=== PATIENT | female | born 1985 ===

== ENCOUNTER 2016-07-03 22:15 | Emergency (ER) | payer OTHER ==
[2016-07-03 22:56] VITALS: O2SAT 100
--- NOTE | 2016-07-04 01:18 | C.PDOC ---
History Of Present Illness 30 y/o female presents to the ED with complains of vaginal bleeding for the past 3 days. Pt is , . Pt denies abdominal pain, vomiting, fever or any other complaints. Chief Complaint (Nursing): Female Genitourinary History Per: Patient History/Exam Limitations: no limitations Onset/Duration Of Symptoms: Days Current Symptoms Are (Timing): Still Present Severity: Mild Quality Of Discomfort: denies: "Pain" Associated Symptoms: denies: Fever, Vomiting Alleviating Factors: None Recent travel outside of the [place]: No Abnormal Vaginal Bleeding: Yes : 2 Para: 1 Past Medical History Reviewed: Historical Data, Nursing Documentation, Vital Signs Vital Signs: Last Vital Signs Temp 98.4 F 07/03/16 22:54 Pulse 92 H 07/03/16 22:54 Resp 20 07/03/16 22:54 BP 118/74 07/03/16 22:54 Pulse Ox 100 07/04/16 03:32 Family History: States: Unknown Family Hx - Social History Hx Alcohol Use: No Hx Substance Use: No - Immunization History Hx Tetanus Toxoid Vaccination: No Hx Influenza Vaccination: No Hx Pneumococcal Vaccination: No Review Of Systems Except As Marked, All Systems Reviewed And Found Negative. Constitutional: Negative for: Fever Gastrointestinal: Negative for: Vomiting, Abdominal Pain Genitourinary: Positive for: Vaginal Bleeding Physical Exam - Physical Exam Appears: Non-toxic, No Acute Distress Skin: Warm, Dry, No Rash Head: Atraumatic, Normacephalic Chest: Symmetrical Cardiovascular: Rhythm Regular Respiratory: Normal Breath Sounds, No Rales, No Rhonchi, No Wheezing Gastrointestinal/Abdominal: Soft, Tenderness (mild hypogastric tenderness), No Guarding, No Rebound Pelvic: Vaginal Bleeding (minimal), No Cervical Motion Tenderness, No Cervix Open Extremity: Bilateral: Atraumatic Neurological/Psych: Oriented x3 ED Course And Treatment - Laboratory Results Result Diagrams: 07/04/16 01:45 07/04/16 01:45 O2 Sat by Pulse Oximetry: 100 (on room air) Pulse Ox Interpretation: Normal - CT Scan/US US preg Other Rad Studies (CT/US): Read By Radiologist, Radiology Report Reviewed CT/US Interpretation: EXAM: US First Trimester, Transabdominal. CLINICAL HISTORY: 30 years old, female; Signs and symptoms; Other: Vag bleeding ; ; Additional info: Vaginal. bleed/ . TECHNIQUE: Real-time transabdominal obstetrical ultrasound of the maternal pelvis and a first trimester. with image documentation. COMPARISON: No relevant prior studies available. FINDINGS: Gestation: No intrauterine gestational sac. Uterus/cervix: Endometrium: 1.6 cm in thickness, heterogeneous with increased vascularity. Closed. cervix. Ovaries: RIGHT ovary: Probable corpus luteal cyst. LEFT ovary: Normal. No adnexal masses. Free fluid: No significant free fluid. IMPRESSION: 1. No intrauterine gestation. DDX: Early IUP, missed , ectopic . 2. Thickened, heterogeneous endometrium. RPOC not excluded. 3. Incidental/non-acute findings are described above. EXAM: US , Transvaginal. CLINICAL HISTORY: 30 years old, female; Signs and symptoms; Other: Vag bleeding; ; Additional info: Vaginal. bleed/ . TECHNIQUE: Real-time transvaginal obstetrical ultrasound of the maternal pelvis and a first trimester . with image documentation. Transvaginal imaging was used for better evaluation of the fetus and. adnexa. COMPARISON: No relevant prior studies available. FINDINGS: Gestation: No intrauterine gestational sac. Uterus/cervix: Endometrium: 1.6 cm in thickness, heterogeneous with increased vascularity. Closed. cervix. Ovaries: RIGHT ovary : Probable corpus luteal cyst. LEFT ovary: Normal. No adnexal masses. Free fluid: No significant free fluid. IMPRESSION: 1. No intrauterine gestation. DDX: Early IUP, missed , ectopic . 2. Thickened, heterogeneous endometrium. RPOC not excluded. 3. Incidental/non-acute findings are described above. Thank you for allowing us to participate in the care of your patient. Dictated and Authenticated by: Keith Lawton MD. 07/04/2016 3: 30 AM Eastern Time ([place] & [place]) Medical Decision Making Medical Decision Making: Plan: labs, US transvaginal Disposition Counseled Patient/Family Regarding: Diagnosis - Disposition Referrals: [facility] [Outside] Disposition: HOME/ ROUTINE Disposition Time: 03:37 Condition: STABLE Instructions: Threatened Miscarriage (ED) - POA Present On Arrival: None - Clinical Impression Clinical Impression: Threatened - Scribe Statement The provider has reviewed the documentation as recorded by the Susanne Burden Provider Attestation: All medical record entries made by the Scribe were at my direction and personally dictated by me. I have reviewed the chart and agree that the record accurately reflects my personal performance of the history, physical exam, medical decision making, and the department course for this patient. I have also personally directed, reviewed, and agree with the discharge instructions and disposition.
[2016-07-04 01:50] LABS: BASO % 0.6 % (0.0-2.0); EOS # 0.2 K/uL (0.0-0.7); EOS % 2.6 % (0.0-4.0); HEMATOCRIT 38.1 % (34.0-47.0); LYMPH # 3.2 K/uL (1.0-4.3); LYMPH % 47.9 % (20.0-40.0); MEAN CORPUSCULAR HEMOGLOBIN 29.3 pg (27.0-31.0); MEAN CORPUSCULAR HGB CONC 32.9 g/dL (33.0-37.0); MEAN PLATELET VOLUME 7.9 fL (7.2-11.7); MONO # 0.5 K/uL (0.0-0.8); MONO % 7.8 % (0.0-10.0); NRBC % 0.2 % (0.0-2.0); RED CELL DISTRIBUTION WIDTH 12.7 % (11.5-14.5); WHITE BLOOD COUNT 6.8 K/uL (4.8-10.8)
[2016-07-04 02:10] LABS: CHLORIDE 99 mmol/L (98-107); POTASSIUM 3.2 mmol/L (3.6-5.2); SODIUM 142 mmol/L (132-148)
[2016-07-04 02:12] LABS: GFR AFRICAN-AMERICAN > 60
[2016-07-04 02:13] LABS: ALB/GLOB RATIO 1.2 (1.0-2.1); ALKALINE PHOSPHATASE 90 U/L (38-126); ALT/SGPT 44 U/L (9-52); AST/SGOT 37 U/L (14-36); BILIRUBIN,TOTAL 0.2 mg/dL (0.2-1.3); BLOOD UREA NITROGEN 12 mg/dL (7-17); CARBON DIOXIDE 26 mmol/L (22-30); GLUCOSE,RANDOM 92 mg/dL (65-105); TOTAL PROTEIN 7.7 g/dL (6.3-8.3)
[2016-07-04 02:14] LABS: CALCIUM 8.8 mg/dl (8.6-10.4)
--- NOTE | 2016-07-04 03:30 | US ---
EXAM: US First Trimester, Transabdominal. CLINICAL HISTORY: 30 years old, female; Signs and symptoms; Other: Vag bleeding; ; Additional info: Vaginal bleed/ TECHNIQUE: Real-time transabdominal obstetrical ultrasound of the maternal pelvis and a first trimester with image documentation. COMPARISON: No relevant prior studies available. FINDINGS: Gestation: No intrauterine gestational sac. Uterus/cervix: Endometrium: 1.6 cm in thickness, heterogeneous with increased vascularity. Closed cervix. Ovaries: RIGHT ovary: Probable corpus luteal cyst. LEFT ovary: Normal. No adnexal masses. Free fluid: No significant free fluid. IMPRESSION: 1. No intrauterine gestation. DDX: Early IUP, missed , ectopic . 2. Thickened, heterogeneous endometrium. RPOC not excluded. 3. Incidental/non-acute findings are described above. EXAM: US , Transvaginal. CLINICAL HISTORY: 30 years old, female; Signs and symptoms; Other: Vag bleeding; ; Additional info: Vaginal bleed/ TECHNIQUE: Real-time transvaginal obstetrical ultrasound of the maternal pelvis and a first trimester with image documentation. Transvaginal imaging was used for better evaluation of the fetus and adnexa. COMPARISON: No relevant prior studies available. FINDINGS: Gestation: No intrauterine gestational sac. Uterus/cervix: Endometrium: 1.6 cm in thickness, heterogeneous with increased vascularity. Closed cervix. Ovaries: RIGHT ovary: Probable corpus luteal cyst. LEFT ovary: Normal. No adnexal masses. Free fluid: No significant free fluid.
[2016-07-04 03:46] VITALS: BP 100/63; PULSE 81; RESP 16; TEMP 97.5
== END 2016-07-04 03:46 | disposition home or self-care (01) ==
LOC: EDBD 22:15 → C.ER 22:15
DX: O20.0 Threatened abortion (principal); Z3A.00 Weeks of gestation of pregnancy not specified

== ENCOUNTER 2017-03-23 19:00 | Emergency (ER) | payer OTHER ==
[2017-03-23 19:06] VITALS: RESP 20; O2SAT 98
[2017-03-23] MEDS ORDERED: Sodium Chloride 0.9% 1,000 ML IV STA (19:28)
--- NOTE | 2017-03-23 19:33 | C.PDOC ---
History Of Present Illness 31 year old (A1) female who presents to the ED complaining of productive cough with yellow sputum, subjective fever and body aches, onset 1 day ago. Patient has a sick contact in her son who has been exhibiting similar symptoms and is currently taking promethazine. Patient has not taken any medication for symptoms except Robutussin. She has a scheduled for . Denies any recent travel. PMD: Veronica Grider Time Seen by Provider: 03/23/17 19:17 Chief Complaint (Nursing): Cough, Cold, Congestion Past Medical History Reviewed: Historical Data, Nursing Documentation, Vital Signs Vital Signs: Last Vital Signs Temp 98.7 F 03/23/17 20:45 Pulse 87 03/23/17 20:45 Resp 20 03/23/17 20:45 BP 112/71 03/23/17 20:45 Pulse Ox 98 03/23/17 20:50 - Medical History PMH: No Chronic Diseases Surgical History: Family History: States: No Known Family Hx - Social History Hx Tobacco Use: No Hx Alcohol Use: No Hx Substance Use: No - Immunization History Hx Tetanus Toxoid Vaccination: No Hx Influenza Vaccination: No Hx Pneumococcal Vaccination: No Review Of Systems Except As Marked, All Systems Reviewed And Found Negative. Constitutional: Negative for: Chills Respiratory: Negative for: Shortness of Breath Physical Exam - Physical Exam Additional Physical Exam Comments: Constitutional: No acute distress. Head: Normocephalic. Atraumatic. Eyes: PERRL. ENT: Moist mucous membranes. No erythema. No exudates. Right TM is normal. Left TM is obscured by cerumen. Neck: Supple. Cardiovascular: Tachycardic. Radial pulse 2+ bilaterally. Chest: No tenderness. Respiratory: Clear to auscultation bilaterally. GI: Soft. Nontender. Gravid uterus. Back: No CVA tenderness. Musculoskeletal: No tenderness or swelling. Skin: No rash. Neurologic: Alert, no focal deficits. ED Course And Treatment O2 Sat by Pulse Oximetry: 98 Medical Decision Making Medical Decision Making: Influenza A B --results are negative. Patient in no distress. HR and temperature normalized. Advised on safe medications to take in . Discharged home, return to ED for worsening pain, fever, dyspnea, vomiting, bleeding, or any other problem. Disposition - Disposition Disposition: HOME/ ROUTINE Disposition Time: 20:22 Condition: STABLE Prescriptions: Nitrofurantoin Macrocrystals [Macrobid] 100 mg PO BID #20 cap Oseltamivir Phosphate [Tamiflu] 75 mg PO BID #9 capsule Instructions: Influenza (ED), Urinary Tract Infection in (ED) Forms: Intrinsic-ID (Armenian) - Clinical Impression Clinical Impression: Influenza-like illness
[2017-03-23] MEDS ORDERED: Sodium Chloride 0.9% 1,000 ML ONE (19:43)
[2017-03-23 20:13] LABS: RBC URINE 14 /hpf (0-3); URINE BACTERIA MOD (<OCC); URINE BILIRUBIN NEGATIVE (NEGATIVE); URINE BLOOD 1+ (NEGATIVE); URINE COLOR Yellow (YELLOW); URINE GLUCOSE (UA) NORMAL (Normal); URINE KETONE NEGATIVE (NEGATIVE); URINE LEUKOCYTE ESTERASE 3+ Leu/uL (Negative); URINE PROTEIN 1+ mg/dL (NEGATIVE); WBC URINE 116 /hpf (0-5)
[2017-03-23] MEDS ORDERED: Benzocaine/Menthol (Cepacol) Lozenge MT STA (20:28)
[2017-03-23 20:46] VITALS: BP 112/71; PULSE 87; TEMP 98.7
== END 2017-03-23 21:43 | disposition home or self-care (01) ==
LOC: C.ER 19:00
DX: O99.513 Diseases of the respiratory system complicating pregnancy, third trimester (principal); J11.1 Influenza due to unidentified influenza virus with other respiratory manifestations; Z3A.38 38 weeks gestation of pregnancy
CPT/HCPCS: 81001; 87086; 87804; 96360; 99283; J7040

== ENCOUNTER 2017-04-01 07:27 | Inpatient (IN) | payer OTHER, MEDICAID ==
[2017-04-01] MEDS ORDERED: Sodium Citrate/Citric Acid 15 ml Sol PO ONE (08:09)
[2017-04-01] MEDS: Lactated Ringer's 1,000 ML IV SCH ×3 (08:15→10:35)
[2017-04-01 08:20] VITALS: BMI 25.5
[2017-04-01 08:28] LABS: BASO % 0.7 % (0.0-2.0); EOS # 0.1 K/uL (0.0-0.7); EOS % 1.2 % (0.0-4.0); HEMATOCRIT 31.4 % (34.0-47.0); LYMPH # 1.9 K/uL (1.0-4.3); LYMPH % 27.7 % (20.0-40.0); MEAN CELL VOLUME 90.6 fL (81.0-99.0); MEAN CORPUSCULAR HEMOGLOBIN 31.8 pg (27.0-31.0); MEAN CORPUSCULAR HGB CONC 35.1 g/dL (33.0-37.0); MEAN PLATELET VOLUME 7.2 fL (7.2-11.7); MONO # 0.6 K/uL (0.0-0.8); MONO % 9.1 % (0.0-10.0); RED CELL DISTRIBUTION WIDTH 13.4 % (11.5-14.5); WHITE BLOOD COUNT 6.7 K/uL (4.8-10.8)
[2017-04-01 08:35] LABS: ALB/GLOB RATIO 0.9 (1.0-2.1); ALKALINE PHOSPHATASE 197 U/L (38-126); ALT/SGPT 27 U/L (9-52); AST/SGOT 18 U/L (14-36); BILIRUBIN,TOTAL 0.4 mg/dL (0.2-1.3); BLOOD UREA NITROGEN 13 mg/dL (7-17); CALCIUM 8.6 mg/dl (8.6-10.4); CARBON DIOXIDE 22 mmol/L (22-30); CHLORIDE 103 mmol/L (98-107); GFR AFRICAN-AMERICAN > 60; GLUCOSE,RANDOM 96 mg/dL (65-105); POTASSIUM 3.5 mmol/L (3.6-5.2); SODIUM 133 mmol/L (132-148); TOTAL PROTEIN 7.4 g/dL (6.3-8.3)
[2017-04-01 08:38] LABS: RBC URINE 20 /hpf (0-3); URINE BILIRUBIN NEGATIVE (NEGATIVE); URINE BLOOD 1+ (NEGATIVE); URINE CALCIUM OXALATE CRYSTALS FEW /hpf (<OCC); URINE COLOR Yellow (YELLOW); URINE GLUCOSE (UA) NORMAL (Normal); URINE KETONE NEGATIVE (NEGATIVE); URINE LEUKOCYTE ESTERASE 1+ Leu/uL (Negative); URINE PROTEIN 1+ mg/dL (NEGATIVE); URINE UROBILINOGEN NORMAL mg/dL (0.2-1.0); WBC URINE 8 /hpf (0-5)
[2017-04-01] MEDS ORDERED: cefOXitin 2 GM in Sodium Chloride 0.9% 100 ML IV ONE (09:00)
[2017-04-01] MEDS ORDERED: Sodium Citrate/Citric Acid 15 ml Sol ONE (09:09)
[2017-04-01] MEDS ORDERED: Oxytocin 10 Units/ml Inj ONE (09:09)
[2017-04-01] MEDS ORDERED: ePHEDrine 50 mg/ml Inj ONE (11:13)
[2017-04-01] MEDS ORDERED: Oxycodone/Acetaminophen 5/325 mg Tab PO PRN (11:37)
[2017-04-01] MEDS: Simethicone 80 mg Chewtab PO SCH ×3 (15:00→23:21)
[2017-04-01] MEDS: guaiFENesin 100 mg/5 ml Syrup UD PO PRN (17:03)
--- NOTE | 2017-04-01 19:23 | OBDS ---
DELIVERY PERSONNEL Delivery Doctor: Amor Salguero MD Scrub Nurse: Mary Carmen Esteves OBT Non Destructive Evaluation Specialist: Renee Newell RN Anesthesiologist: Dr. Sheehan MATERNAL INFORMATION Delivery Anesthesia: Spinal Estimated Blood Loss (ml): 800 Placenta Cultured: No Maternal Complications: None Provider Comments: Uncomplicated repeat LTCS with atraumatic delivery of live male , ROT posit ion, 's 9/9, weight 6lb 2oz. Patient tolerated procedure well. Hemostasis assured. LABOR SUMMARY EDC: 04/09/2017 00:00 No. Babies in Womb: 1 Attempted: Yes LABOR INFORMATION Reason for Induction: Not Applicable Oxytocin: N/A Group B Beta Strep: Positive Antibiotics # of Doses: 1 Antibiotics Time of Last Dose: 1033 Steroids Given: None Reason Steroids Not Administered: Not Applicable MEMBRANES Membranes Rupture Method: Artificial Rupture of Membranes: 04/01/2017 11:55 Length of Rupture (hrs): 0.02 Amniotic Fluid Color: Clear Amniotic Fluid Amount: Moderate Amniotic Fluid Odor: Normal STAGES OF LABOR Stage 3 hrs: 0 Stage 3 min: 1 CSECTION DELIVERY Primary Indication: Repeat Elective Secondary Indication: N/A CSection Urgency: Elective CSection Incidence: Repeat Labor: N/A Elective: Elective CSection Incision: Lower Uterine Transverse BABY A INFORMATION Infant Delivery Date/Time: 04/01/2017 11:56 Method of Delivery: Born in Route : No : N/A Forceps: N/A Vacuum Extraction: N/A Shoulder Dystocia : No SHOULDER DYSTOCIA BABY A Infant Delivery Date/Time: 04/01/2017 11:56 PRESENTATION/POSITION BABY A Presentation: Cephalic Cephalic Presentation: Vertex Vertex Position: Right Occipital Transverse Breech Presentation: N/A PLACENTA INFORMATION BABY A Placenta Delivery Time : 04/01/2017 11:57 Placenta Method of Delivery: Manual Removal Placenta Status: Delivered SCORES BABY A Heart Rate 1 min: >100 bpm Resp Effort 1 min: Good Cry Reflex Irritability 1 min: Cough or Sneeze or Pulls Away Muscle Tone 1 min: Active Motion Color 1 min: Body [place], Extremities Blue Resuscitation Effort 1 min: Tactile Stimulation SCORE 1 MIN: 9 Heart Rate 5 min: >100 bpm Resp Effort 5 min: Good Cry Reflex Irritability 5 min: Cough or Sneeze or Pulls Away Muscle Tone 5 min: Active Motion Color 5 min: Body [place], Extremities Blue SCORE 5 MIN: 9 INFORMATION BABY A Gestational Age at Delivery: 38.6 Gestational Status: Term Outcome : Liveborn Infant Condition : Stable Sex: Male IDENTIFICATION/MEDS BABY A ID Band Number: [id number] ID Band Location: Left Leg; Left Arm Sensor Applied: Yes Sensor Number: [id number] Sensor Location : Cord Clamp Vitamin K Given : Aquamephyton 1 mg IM; Left Thigh Erythromycin Given: Given Both Eyes WEIGHT/LENGTH BABY A Birthweight (gms): 2765 Weight (lb): 6 Weight (oz): 2 Length Inches: 18.25 Length cms: 46.4 CORD INFORMATION BABY A No. Cord Vessels: 3 Nuchal Cord : N/A Nuchal Cord Other: N/A True Knot: N/A Infant Cord pH Baby Arterial: N/A Infant Cord pH Baby Venous: N/A Cord Blood Taken: Yes Banking/Donate Info: N/A Suction: Mouth; Nose ASSESSMENT BABY A Infant Complications: None Physical Findings at Delivery: Within Normal Limits Respirations: Appears Normal Lead Case Manager/ALS Called : No Care By: Kian Nevarez RN Transferred To: Remains with Mother
--- NOTE | 2017-04-01 19:34 | PCM.SURG1 ---
Surgeon's Initial Post Op Note - Surgeon's Notes Surgeon: Nancie Salguero MD Assistant Statistician: Melo Johnston MD Type of Anesthesia: Spinal Anesthesia Administered By: Aguila Smith MD Pre-Operative Diagnosis: 38 weeks 6 days gestation; previous section; previous history of blood transfusion. Operative Findings: Live male , ROT position, weight 6lb 2oz, 's 9/ 9. Normal uterus, normal ovaries and fallopian tubes, bilaterally. Post-Operative Diagnosis: Same Operation Performed: Repeat transverse lower uterine segment Caesarean section Specimen/Specimens Removed: None Estimated Blood Loss: EBL {In ML}: 800 (U.O. 400 mL; 1,500 mL LR with 20 units pitocin) Blood Products Given: N/A Drains Used: No Drains Post-Op Condition: Good Date of Surgery/Procedure: 04/01/17 Time of Surgery/Procedure: 13:15
[2017-04-01] MEDS: Oxycodone/Acetaminophen 5/325 mg Tab PO PRN (21:49)
--- NOTE | 2017-04-01 21:54 | OP ---
PROCEDURE DATE: 04/01/2017 PREOPERATIVE DIAGNOSES: A 38 weeks and 6 days gestation, previous section, previous history of blood transfusion. POSTOPERATIVE DIAGNOSES: A 38 weeks and 6 days gestation, previous section, previous history of blood transfusion. SURGEON: Nancie Salguero MD CATIA DESIGNER: Melo Johnston MD ANESTHESIA ADMINISTERED BY: Luis Sheehan MD. TYPE OF ANESTHESIA: Spinal. OPERATIVE FINDINGS: Live male from the right occipital transverse position, weight 6 pounds 2 ounces, Apgars 9 and 9 and 1 and 5 minutes respectively. Normal uterus and normal ovaries and fallopian tubes bilaterally. OPERATION PERFORMED: Repeat transverse lower uterine segment section. SPECIMENS: None. COMPLICATIONS: None. ESTIMATED BLOOD LOSS: 800 mL. URINE OUTPUT: 400 mL. INTRAVENOUS FLUIDS: 1500 mL of LR and 20 units of Pitocin in each bag. BLOOD PRODUCTS GIVEN: None. COMPLICATIONS: None. PROCEDURE IN DETAIL: The patient was taken to the operating room after having obtained informed consent for the anticipated procedure. This included a discussion of possible risks and complications including, but not limited to, infection requiring continued antibiotics, hemorrhage requiring blood transfusion, repair of any damage to internal organs, possible hysterectomy. The patient expressed understanding. No questions were offered. Consents were signed, dated, witnessed and placed in the patient's chart. The patient received Mefoxin 2 g prior to being transferred to the operating room and a Hall indwelling catheter had been inserted under sterile condition. Once in the operating room, she was placed on the operating room table where spinal anesthesia was administered without incident. She was immediately repositioned into the supine position. The abdomen was prepped and she was subsequently draped in usual sterile fashion. After assuring an adequate level of anesthesia, the previously noted mildly keloid scar was excised using the scalpel. The incision was then carried down through the subcutaneous tissue using the Bovie electrocautery. The fascia was identified. It was nicked in the midline and the incision was extended bilaterally also using the Bovie electrocautery. The rectus muscle was dissected off the overlying fascia. Using the scalpel, the rectus muscle was in its midline and the parietal peritoneum was entered via sharp dissection. The vesicouterine reflection was identified and a bladder flap was created. A transverse incision was then made on the lower uterine segment. Amniotomy was performed and a moderate amount of clear amniotic fluid was retrieved. The incision was extended bilaterally using the bandage scissors. Atraumatic delivery of the infant with the findings as above then ensued. On the operative field, the infant's mouth and nose were bulb suctioned as the umbilical cord was doubly clamped and cut. The was handed off the operative field to the stripe marker in attendance. Manual extraction was used to remove the placenta. It was grossly normal with three vessels present in the cord. The uterus was then exteriorized for closure. This was done in 2 layers using 0 Vicryl; the first layer was running interlocking manner and the second layer was a horizontal imbricating fashion. Good hemostasis was assured. Attention was then directed toward the posterior aspect of the uterus with the findings as above. Copious irrigation was performed. Attention was then redirected back to the uterine incision. Additional sutures using 2-0 Monocryl were placed to assure hemostasis. The uterus was returned to the abdominal cavity. The paracolic gutters were cleared of all debris. A layer of Surgicel was then placed along the uterine incision. The parietal peritoneum was reapproximated using 2-0 chromic in a running fashion. The muscle was reapproximated using 2-0 chromic in a running fashion. The fascia was reapproximated using 1-0 Vicryl in a running fashion in one strand. The subcutaneous tissue was reapproximated using plain catgut in a running fashion, and the skin was reapproximated using 4-0 Monocryl in a subcuticular manner. Steri-Strips were applied as were the pressure dressing. The patient was then repositioned in a frog-leg manner. Bimanual exploration was performed and the uterus was evacuated of all clots and debris. It was firm and contracted about one fingerbreadth below the umbilicus. The patient tolerated the procedure well. She was transferred to the recovery room in stable condition. Infant had been transferred to the well-baby nursery also in stable condition. Dr. Johnston was present throughout the entire procedure from beginning to end. His presence was necessary for the adequate visualization of the operative field at all times for the safe and atraumatic delivery of the and assuring adequate hemostasis throughout. Nancie MD [facility] # [id number]
[2017-04-02] MEDS: Oxycodone/Acetaminophen 5/325 mg Tab PO PRN ×2 (04:30→08:39)
--- NOTE | 2017-04-02 06:46 | OBPPN ---
Datetime: 04/02/2017 06:43 PP Pain Prov: Within normal limits PP Nausea Prov: Denies PP Flatus Prov: No PP Abdomen/Uterus Prov: Normal PP Lochia Prov: Normal PP Extremities Prov: Normal PP C/S Incision Prov: Normal PP Comments Phys Exam Prov: fudus below umblicus ext mild edema,no calf ten dressing clean and dry PP Impression Prov: Normal progression PP Plan Prov: Continue present management PP Progress Note Prov: pt was seen at bed side, pain under control,no n/v, tolerating liquid deit,wa iting to void,min lochia, flatus_ pod#1 s/p c/s cbc advance deit as tolwerated cont pain man encourage ambulation cont post op care Vital Signs Provider PP: Reviewed; Within Normal Limits
[2017-04-02 07:24] LABS: BASO % 0.3 % (0.0-2.0); EOS % 0.1 % (0.0-4.0); HEMATOCRIT 26.7 % (34.0-47.0); LYMPH # 1.3 K/uL (1.0-4.3); LYMPH % 10.2 % (20.0-40.0); MEAN CELL VOLUME 90.9 fL (81.0-99.0); MEAN CORPUSCULAR HEMOGLOBIN 31.7 pg (27.0-31.0); MEAN CORPUSCULAR HGB CONC 34.8 g/dL (33.0-37.0); MONO # 0.4 K/uL (0.0-0.8); MONO % 3.4 % (0.0-10.0); RED CELL DISTRIBUTION WIDTH 13.7 % (11.5-14.5)
[2017-04-02 07:28] LABS: WHITE BLOOD COUNT 12.8 K/uL (4.8-10.8)
[2017-04-02] MEDS: Lactated Ringer's 1,000 ML IV SCH (09:30)
[2017-04-02] MEDS: Prenatal Multivit/Folic Acid/Iron Tab PO SCH (10:02)
[2017-04-02] MEDS: Simethicone 80 mg Chewtab PO SCH ×4 (10:05→21:52)
[2017-04-02] MEDS ORDERED: Bisacodyl 5mg EC Tab PO ONE (11:39)
[2017-04-02] MEDS: guaiFENesin 100 mg/5 ml Syrup UD PO PRN (21:54)
[2017-04-03 00:08] VITALS: RESP 20
[2017-04-03] MEDS: Prenatal Multivit/Folic Acid/Iron Tab PO SCH (10:46)
[2017-04-03] MEDS: Simethicone 80 mg Chewtab PO SCH ×3 (10:47→17:32)
[2017-04-04 00:20] VITALS: BP 94/60; PULSE 75; TEMP 97.5; O2SAT 100
== END 2017-04-03 19:35 | disposition home or self-care (01) | DRG 766 ==
LOC: C.4D 07:31 → C.4M 15:40
PROVIDERS: ADMIT Obstetrics & Gynecology; ATTEND Obstetrics & Gynecology
PROC: 10D00Z1 Extraction of Products of Conception, Low, Open Approach (ICD-10-PCS; principal; 2017-04-02)
DX: O34.211 Maternal care for low transverse scar from previous cesarean delivery (principal); O99.824 Streptococcus B carrier state complicating childbirth; Z37.0 Single live birth; Z3A.38 38 weeks gestation of pregnancy